=== PATIENT | female | born 1975 | race Caucasian/White ===

== ENCOUNTER 2019-11-09 06:23 | Observation (INO) | payer BC ==
[~2019-11-09 06:23] MED LIST: Buffered Lidocaine 1% SYRIN* 1 ML/SYRINGE INTRADERM ONE; Lactated Ringers 1000 ML Bag* 1,000 ML IV SCH; Vancomycin(*) 1,250 MG in NS 0.9% 250 ML* 250 ML IVPB SCH; Vancomycin(*) 1,500 MG in NS 0.9% 250 ML* 250 ML IVPB SCH
[2019-11-09] MEDS ORDERED: Phenylephrine 10 MG/ML VIAL* 1 ML VIAL ONE (06:25)
[2019-11-09] MEDS ORDERED: fentaNYL* 50 MCG/ML 5 ML VIAL (250 MCG VIAL) ONE ×2 (06:25→12:08)
[2019-11-09] MEDS ORDERED: Propofol* 1,000 MG/100 ML BTL ONE (06:25)
[2019-11-09] MEDS ORDERED: Midazolam* 1 MG/ML 2 ML VIAL (2 MG) ONE (06:25)
--- OUTSIDE RECORDS SUMMARY | 2019-11-09 06:25 | XMS REPORT | Continuity of Care Document ---
:1975 External Reference #:[id number] Author Name Leonel Bonilla M.D. (transmitted by agent of provider Savannah Gomez) Address [address] [place] [id number] Care Team Providers Name Role Phone Leonel Bonilla MD - Rheumatology Care Team Information Engineer Steam Patient's Choice Care Team Information Engineer Steam Unavailable Problems Active Problems Provider Date Neuralgia Darrick Villatoro M.D. Onset: 04/17/2015 Cervical spondylosis without myelopathy Federico De La Rosa M.D. Onset: 06/26/2015 Low back pain Federico De La Rosa M.D. Onset: 06/26/2015 Displacement of lumbar intervertebral disc Federico De La Rosa M.D. Onset: 2014 without myelopathy Brachial neuritis Federico De La Rosa M.D. Onset: 04/20/2016 Social History Type Date Description Comments Sex Unknown ETOH Use Rarely consumes alcohol Tobacco Use Start: Unknown Heavy tobacco smoker (more than 10 cigarettes/day) Recreational Drug Use Denies Drug Use Smoking Status Reviewed: 11/01/19 Heavy tobacco smoker (more than 10 cigarettes/day) Exercise Type/Frequency Exercises sporadically Allergies, Adverse Reactions, Alerts Active Allergies Reaction Severity Comments Date Penicillin 02/13/2015 Amoxicillin 02/13/2015 Erythromycin 02/13/2015 Medications Active Medications SIG Qnty Indications Ordering Date Provider FLAVIO Youssef After surgery M47.22 [facility] 10/18/2019 MD FLAVIO Alvarado Collar At all times [facility] 09/28/2019 after surgery MD Christiano Nabumetone take 1 tablet 30tabs Leonel Bonilla, 03/03/2019 750mg Tablets by mouth twice M.D. a day if needed for pain (avoid use with other nsaids) Mattress Cover temper pedic 1units Leonel Bonilla, 05/20/2018 [facility] use for support M.D. for myalgias Dz Code 729.1 Pramipexole take 1 or 2 30tabs Leonel Bonilla, 07/19/2017 Dihydrochloride tablets by M.D. 0.125mg mouth at Tablets bedtime as needed for restless legs Rolaids Multi-Symptom prn Unknown Chewtabs Gabapentin Take 1 Capsule 360caps M47.22 Leonel Bonilla, 400mg Capsules By Mouth Four M.D. Times A Day History Medications Hydrocodone-Acetaminophen Take one 7tabs M47.22 Leonel 05/24/2019 - 5-325mg tablet/capsule by Chad, Unknown Tablets mouth at bedtime. M.D. as needed for pain Immunizations Description No Information Available Vital Signs Date Vital Result Comment 11/01/2019 11:43am Height 66 inches 5'6" Weight 201.12 lb Heart Rate 85 /min BP Systolic Sitting 116 mmHg BP Diastolic Sitting 76 mmHg Body Temperature 98.2 F Pain Level 6 O2 % BldC Oximetry 98 % BMI (Body Mass Index) 32.5 kg/m2 10/18/2019 2:08pm Height 66 inches 5'6" Weight 207.00 lb Heart Rate 88 /min BP Systolic 110 mmHg BP Diastolic 66 mmHg Pain Level 5 right shoulder Mid Back Right arm and hand BMI (Body Mass Index) 33.4 kg/m2 Results Test Acquired Date Facility Test Result H/L Range Note Basic Metabolic 10/26/2019 [facility] Sodium 138 mmol/L Normal 135-145 Panel [address] [place] [address] [phone] Potassium 4.2 mmol/L Normal 3.5-5.0 Chloride 105 mmol/L Normal 101-111 Co2 Carbon Dioxide 25 mmol/L Normal 22-32 Anion Gap 8 mmol/L Normal 2-11 Glucose 90 mg/dL Normal 70-100 Blood Urea Nitrogen 10 mg/dL Normal 6-24 Creatinine 0.67 mg/dL Normal 0.51-0.95 BUN/Creatinine Ratio 14.9 Normal 8-20 Calcium 8.7 mg/dL Normal 8.6-10.3 Egfr Non- 95.2 >60 Egfr 115.2 >60 1 Laboratory test 10/26/2019 [facility] HCG < 0.60 mIU/ mL 2 finding [address] [place] [address] [phone] Urinalysis Profile 10/26/2019 [facility] Urine Color Yellow [address] [place] [address] [phone] Urine Appearance Cloudy Urine Specific [place] 1.012 Normal 1.010-1.030 Urine pH 6.0 Normal 5-9 Urine Urobilinogen Negative Negative Urine Ketones Trace Abnormal Negative Urine Protein Negative Negative Urine Leukocytes Negative Negative Urine Blood Negative Negative Urine Nitrite Negative Negative Urine Bilirubin Negative Negative Urine Glucose Negative Negative Inr/Protime 10/26/2019 [facility] Inr 0.91 Normal 0.82-1.09 3 [address] [place] [address] [phone] Laboratory test 10/26/2019 [facility] Partial 31.7 Normal 26.0 -38.0 finding 101 [facility] [place] [address] Time PTT [phone] CBC No Diff 10/26/2019 [facility] White Blood 6.5 10^3/uL Normal 3.5-10.8 [address] [facility] [place] [address] [phone] Red Blood Count 4.52 10^6/uL Normal 3.70-4.87 Hemoglobin 14.6 g/dL Normal 12.0-16.0 Hematocrit 42 % Normal 35-47 Mean Corpuscular Volume 93 fL Normal 80-97 Mean Corpuscular Hemoglobin 32 pg High 27-31 Mean Corpuscular HGB Conc 35 g/dL Normal 31-36 Red Cell Distribution Width 15 % Normal 10-15 Platelet Count 294 10^3/uL Normal 150-450 Mean Platelet Volume 7.8 fL Normal 7.4-10.4 Type & Screen 10/26/2019 [facility] Patient Blood Type A Positive [address] [place] [address] [phone] Antibody Screen NEGATIVE Xray 05/24/2019 [facility] TBD <pending> Xray 05/24/2019 [facility] TBD <pending> Xray 05/24/2019 [facility] TBD <pending> 1 Because ethnic data is not always readily available, this report includes an eGFR for both -Americans and non- Americans. The National Kidney Disease Education Program (NKDEP) does not endorse the use of the MDRD equation for patients that are not between the ages of 18 and 70, are , have extremes of body size, muscle mass, or nutritional status, or are non- or non-. According to the National Kidney Foundation, irrespective of diagnosis, the stage of the disease is based on the level of kidney function: Stage Description GFR(mL/min/1.73 m(2)) 1 Kidney damage with normal or decreased GFR 90 2 Kidney damage with mild decrease in GFR 60-89 3 Moderate decrease in GFR 30-59 4 Severe decrease in GFR 15-29 5 Kidney failure <15 (or dialysis) 2 <5.0 Negative 5.0 - 25.0 Indeterminate (Repeat testing recommended after 72 hours) >25.0 Positive Perimenopausal women can display HCG levels of up to 20 mIU/mL 3 Standard intensity warfarin therapeutic range: 2.0-3.0 High intensity warfarin therapeutic range: 2.5-3.5 Procedures Date Code Description Status 10/26/2019 62737 EKG, Interpretation Only Completed Medical Devices Description No Information Available Encounters Type Date Location Provider Dx Diagnosis Office Visit 11/01/2019 Rheumatology Leonel Bonilla, M47.22 Other spondylosis 11:40a [facility] with radiculopathy, cervical region M48.02 Spinal stenosis, cervical region M47.26 Other spondylosis with radiculopathy, lumbar region M51.36 Other intervertebral disc degeneration, lumbar region Office 09/13/2019 [facility] M47.22 Other spondylosis Visit 9:00a [facility] Al[facility] MD with radiculopathy, cervical region M48.02 Spinal stenosis, cervical region M47.26 Other spondylosis with radiculopathy, lumbar region M51.36 Other intervertebral disc degeneration, lumbar region Office 07/26/2019 [facility] M47.22 Other spondylosis Visit 1:00p [facility] Al[facility] MD with radiculopathy, cervical region M54.5 Low back pain M47.26 Other spondylosis with radiculopathy, lumbar region M51.36 Other intervertebral disc degeneration, lumbar region Office Visit 05/24/2019 Rheumatology Leonel M47.22 Other spondylosis 1:40p [facility] Bonilla M.D. with radiculopathy, cervical region M79.605 Pain in left leg D17.24 Benign lipomatous neoplasm of skin, subcu of left leg G25.81 Restless legs syndrome M54.5 Low back pain Assessments Date Code Description Provider 11/01/2019 M47.22 Other spondylosis with radiculopathy, Leonel Bonilla M.D. cervical region 11/01/2019 M48.02 Spinal stenosis, cervical region Leonel Bonilla M.D. 11/01/2019 M47.26 Other spondylosis with radiculopathy, Leonel Bonilla M.D. lumbar region 11/01/2019 M51.36 Other intervertebral disc degeneration, Leonel Bonilla M.D. lumbar region 10/18/2019 M47.22 Other spondylosis with radiculopathy, Marciano Alvarado MD cervical region 10/18/2019 M48.02 Spinal stenosis, cervical region Marciano Alvarado MD 10/18/2019 M47.26 Other spondylosis with radiculopathy, Marciano Alvarado MD lumbar region 09/25/2019 M47.22 Other spondylosis with radiculopathy, Marciano Alvarado MD cervical region 09/25/2019 M48.02 Spinal stenosis, cervical region Marciano Alvarado MD 09/13/2019 M47.22 Other spondylosis with radiculopathy, Marciano Alvarado MD cervical region 09/13/2019 M48.02 Spinal stenosis, cervical region Marciano Alvarado MD 09/13/2019 M47.26 Other spondylosis with radiculopathy, Marciano Alvarado MD lumbar region 09/13/2019 M51.36 Other intervertebral disc degeneration, Marciano Alvarado MD lumbar region 07/26/2019 M47.22 Other spondylosis with radiculopathy, Marciano Alvarado MD cervical region 07/26/2019 M54.5 Low back pain Marciano Alvarado MD 07/26/2019 M47.26 Other spondylosis with radiculopathy, Marciano Alvarado MD lumbar region 07/26/2019 M51.36 Other intervertebral disc degeneration, Marciano Alvarado MD lumbar region 05/24/2019 M47.22 Other spondylosis with radiculopathy, Leonel Bonilla M.D. cervical region 05/24/2019 M79.605 Pain in left leg Leonel Bonilla M.D. 05/24/2019 D17.24 Benign lipomatous neoplasm of skin and Leonel Bonilla M.D. subcutaneous tissue of left leg 05/24/2019 G25.81 Restless legs syndrome Leonel Bonilla M.D. 05/24/2019 M54.5 Low back pain Leonel Bonilla M.D. Plan of Treatment Future Appointment(s):01/31/2020 9:20 am - Leonel Bonilla M.D. at [facility]11/09/2019 10:30 am - Marciano Alvarado MD at [facility]11/17/2019 11:30 am - Marciano Alvarado MD at [facility]12/11/2019 12:30 pm - Marciano Alvarado MD at [facility]11/01/2019 - Leonel Bonilla M.D.M47.22 Other spondylosis with radiculopathy, cervical iiwkbcX08.02 Spinal stenosis, cervical yqosoyJ77.26 Other spondylosis with radiculopathy, lumbar sitjoyG24.36 Other intervertebral disc degeneration, lumbar region Functional Status Description No Information Available Mental Status Description No Information Available Referrals Refer to Dr Reason for Referral Status Appt Date Aj Prado MD Created [address] [place] [address] [phone] Aj Prado MD pre op clearance Created [address] [place] [address] [phone] Marciano Alvarado MD Please evaluate and treat patient with Sent lumbar radiculopathy symptoms 8 [facility], [place] [address] [phone] Marciano Alvarado MD Please evaluate and treat lumbar Created radiculopathy [address] [place] [id number] [phone]
--- OUTSIDE RECORDS SUMMARY | 2019-11-09 06:25 | XMS REPORT | Continuity of Care Document ---
:1975 External Reference #:[id number] Author Name Marciano Alvarado MD (transmitted by agent of provider Sanjana Reyes ) Address [address] [place] [address] Care Team Providers Name Role Phone Leonel Bonilla MD - Rheumatology Care Team Information Occupational Ther Patient's Choice Care Team Information Occupational Ther Unavailable Problems Active Problems Provider Date Neuralgia [...] Use Denies Drug Use Smoking Status Reviewed: 09/13/19 Heavy tobacco smoker (more than 10 cigarettes/day) Exercise Type/Frequency Exercises sporadically Allergies, Adverse Reactions, Alerts Active Allergies Reaction Severity Comments Date Penicillin 02/13/2015 Amoxicillin 02/13/2015 Erythromycin 02/13/2015 Medications Active Medications SIG Qnty Indications Ordering Date Provider Nabumetone take 1 tablet by 30tabs Leonel Bonilla, 03/03/2019 750mg Tablets mouth twice a M.D. day if needed for pain (Avoid Use With Other NSAIDS) Venlafaxine HCL ER take 1 capsule 60caps M47.22 Leonel Bonilla, 05/20/2018 150mg by mouth once M.D. Caps ER 24HR daily Mattress Cover temper pedic use 1units Leonel Bonilla, 05/20/2018 [facility] [place] for M.D. myalgias Dz Code 729.1 Pramipexole take 1 or 2 30tabs Leonel Bonilla, 07/19/2017 Dihydrochloride tablets by mouth M.D. 0.125mg at bedtime as Tablets Needed For Restless Legs Rolaids Multi-Symptom prn Unknown Chewtabs Gabapentin Take 1 Capsule 360caps M47.22 Leonel Bonilla, 400mg Capsules By Mouth Four M.D. Times A Day Cyclobenzaprine HCL take one by 60tabs M47.22 Leonel Bonilla, 10mg mouth three M.D. Tablets times a day as needed For spasm History Medications Hydrocodone-Acetaminophen Take one 7tabs M47.22 Leonel 05/24/2019 - 5-325mg tablet/capsule by Chad, Unknown Tablets mouth at bedtime. M.D. as needed for pain Magnesium take one 60tabs Leonel 03/29/2019 - 500mg Tablets capsule/tablet Chad, 09/06/2019 daily by mouth M.D. Immunizations Description No Information Available Vital Signs Date Vital Result Comment 09/13/2019 9:15am Height 66 inches 5'6" Weight 207.00 lb Heart Rate 84 /min BP Systolic Sitting 122 mmHg Lue reg cuff BP Diastolic Sitting 86 mmHg Lue reg cuff Respiratory Rate 14 /min BMI (Body Mass Index) 33.4 kg/m2 07/26/2019 1:57pm Height 66 inches 5'6" Weight 210.00 lb BP Systolic 118 mmHg BP Diastolic 72 mmHg Pain Level 6 BMI (Body Mass Index) 33.9 kg/m2 Results Test Acquired Date Facility Test Result H/L Range Note Xray 05/24/2019 [facility] TBD <pending> Xray 05/24/2019 [facility] TBD <pending> Xray 05/24/2019 [facility] TBD <pending> Procedures Description No Information Available Medical Devices Description No Information Available Encounters Type Date Location Provider Dx Diagnosis Office Visit 07/26/2019 [facility] M47.22 Other spondylosis 1:00p [facility] Dim[facility], MD with radiculopathy, cervical region M54.5 Low [...] Restless legs syndrome M54.5 Low back pain Office Visit 04/21/2019 [facility] Maciej Ovalle, M79.605 Pain in left Of [facility] DE SANTIAGO, FACS leg Assessments Date Code Description Provider 09/13/2019 M47.22 Other spondylosis with radiculopathy, Marciano Alvarado MD cervical region 09/13/2019 M47.26 Other spondylosis with radiculopathy, Marciano Alvarado MD lumbar region 09/13/2019 M51.36 Other intervertebral disc degeneration, Marciano Alvarado MD lumbar region 09/13/2019 M47.12 Other spondylosis with myelopathy, Marciano Alvarado MD cervical region 07/26/2019 M47.22 Other spondylosis with radiculopathy, Marciano Alvarado MD cervical region 07/26/2019 M54.5 Low back pain Marciano Alvarado MD 07/26/2019 M47.26 Other spondylosis with radiculopathy, Marciano Alvarado MD lumbar region 07/26/2019 M51.36 Other intervertebral disc degeneration, Marciano Alvarado MD lumbar region 05/24/2019 M47.22 Other spondylosis with radiculopathy, Leonel Boinlla M.D. cervical region 05/24/2019 M79.605 Pain in left leg Leonel Bonilla M.D. 05/24/2019 D17.24 Benign lipomatous neoplasm of skin and Leonel Bonilla M.D. subcutaneous tissue of left leg 05/24/2019 G25.81 Restless legs syndrome Leonel Bonilla M.D. 05/24/2019 M54.5 Low back pain Leonel Bonilla M.D. 04/21/2019 M79.605 Pain in left leg Maciej Ovalle MD, FACS Plan of Treatment Future Appointment(s):12/20/2019 9:30 am - Marciano Alvarado MD at [facility]09/13/2019 - Marciano Alvarado, MDM47.22 Other spondylosis with radiculopathy, cervical regionFollow up:RV in 3 months . Patient will call if she would like to proceed with surgical intervention.M47.26 Other spondylosis with radiculopathy, lumbar ixdpjiD94.36 Other intervertebral disc degeneration, lumbar xzstqiY30.12 Other spondylosis with myelopathy, cervical region Functional Status Description No Information Available Mental Status Description No Information Available Referrals Refer to Reason for Referral Status Appt Date Marciano Alvarado MD Please evaluate and treat patient with Sent lumbar radiculopathy symptoms 8 [facility], [place] [address] [phone] Marciano Alvarado MD Please evaluate and treat lumbar Created radiculopathy 8 [facility], [place] [address] [phone] Maciej Ovalle MD Please evaluate and treat patient with painful Sent lipomas to consider lipoma excision [address] [facility] [address] [facility] [address] [phone]
--- OUTSIDE RECORDS SUMMARY | 2019-11-09 06:25 | XMS REPORT | Continuity of Care Document ---
:1975 External Reference #:[id number] Author Name Nick Hernandez M.D. (transmitted by agent of provider Reina Rai) Address [address] [facility] [address] [place] [address] Care Team Providers Name Role Phone Leonel Bonilla MD - Rheumatology Care Team Information Block Greaser [phone] Patient's Choice Care Team Information Block Greaser Unavailable Problems Active Problems Provider Date Neuralgia [...] Use Denies Drug Use Smoking Status Reviewed: 10/18/19 Heavy tobacco smoker (more than 10 cigarettes/day) Exercise Type/Frequency Exercises sporadically Allergies, Adverse Reactions, Alerts Active Allergies Reaction Severity Comments Date Penicillin 02/13/2015 Amoxicillin 02/13/2015 Erythromycin 02/13/2015 Medications Active Medications SIG Qnty Indications Ordering Date Provider FLAVIO Youssef After surgery M47.22 [facility] 10/18/2019 MD FLAVIO Alvarado Collar At all times [facility] 09/28/2019 after surgery MD Christiano Nabumetone take 1 tablet 30tabs Leonel Bonilla 03/03/2019 750mg Tablets by mouth twice M.D. a day if needed for pain (Avoid Use With Other NSAIDS) Venlafaxine HCL ER take 1 capsule 60caps M47.22 Leonel Bonilla, 05/20/2018 150mg by mouth once M.D. Caps ER 24HR daily Mattress Cover temper pedic 1units Leonel Bonilla, 05/20/2018 Misc use for support M.D. for myalgias Dz Code 729.1 Pramipexole take 1 or 2 30tabs Leonel Bonilla, 07/19/2017 Dihydrochloride tablets by M.D. 0.125mg mouth at Tablets bedtime as Needed For Restless Legs Rolaids Multi-Symptom prn [...] Available Vital Signs Date Vital Result Comment 10/18/2019 2:08pm Height 66 inches 5'6" Weight 207.00 lb Heart Rate 88 /min BP Systolic 110 mmHg BP Diastolic 66 mmHg Pain Level 5 right shoulder Mid Back Right arm and hand BMI (Body Mass Index) 33.4 kg/m2 09/13/2019 9:15am Height 66 inches 5'6" Weight 207.00 lb Heart Rate 84 /min BP Systolic Sitting 122 mmHg Lue reg cuff BP Diastolic Sitting 86 mmHg Lue reg cuff Respiratory Rate 14 /min BMI (Body Mass Index) 33.4 kg/m2 Results Test Acquired Date Facility Test Result H/L Range Note Basic Metabolic 10/26/2019 [facility] Sodium 138 mmol/L Normal 135-[address] [place] [address] [phone] Potassium 4.2 mmol/L Normal 3.5-5.0 Chloride 105 mmol/L Normal 101-111 Co2 Carbon Dioxide 25 mmol/L Normal 22-32 Anion Gap 8 mmol/L Normal 2-11 Glucose 90 mg/dL Normal 70-100 Blood Urea Nitrogen 10 mg/dL Normal 6-24 Creatinine 0.67 mg/dL Normal 0.51-0.95 BUN/Creatinine Ratio 14.9 Normal 8-20 Calcium 8.7 mg/dL Normal 8.6-10.3 Egfr Non- 95.2 >60 Egfr 115.2 >60 1 Laboratory test 10/26/2019 [facility] HCG < 0.60 mIU/ mL 2 finding 101 [place] [address] [phone] Urinalysis Profile 10/26/2019 [facility] Urine Color Yellow [address] [place] [address] [phone] Urine Appearance Cloudy Urine Specific [place] 1.012 Normal 1.010-1.030 Urine pH 6.0 Normal 5-9 Urine Urobilinogen Negative Negative Urine Ketones Trace Abnormal Negative Urine Protein Negative Negative Urine Leukocytes Negative Negative Urine Blood Negative Negative Urine Nitrite Negative Negative Urine Bilirubin Negative Negative Urine Glucose Negative Negative Inr/Protime 10/26/2019 [facility] Inr 0.91 Normal 0.82-1.09 3 [address] [place] [address] [phone] Laboratory test 10/26/2019 [facility] Partial 31.7 Normal 26.0 -38.0 finding [address] [facility] [place] [address] Time PTT [phone] CBC No Diff 10/26/2019 [facility] White Blood 6.5 10^3/uL Normal 3.5-10.8 [address] [facility] [place] [address] [phone] Red Blood Count 4.52 10^6/uL Normal 3.70-4.87 [...] fL Normal 7.4-10.4 Type & Screen 10/26/2019 [facility] Patient Blood Type A Positive [address] [place] [address] [phone] Antibody Screen NEGATIVE Xray 05/24/2019 [facility] TBD <pending> Xray 05/24/2019 [facility] TBD <pending> Xray 05/24/2019 [facility] TBD [...] High intensity warfarin therapeutic range: 2.5-3.5 Procedures Description No Information Available Medical Devices Description No Information Available Encounters Type Date Location Provider Dx Diagnosis Office Visit 09/13/2019 [facility] M47.22 Other spondylosis 9:00a [facility] MD with [...] back pain Assessments Date Code Description Provider 10/18/2019 M47.22 Other spondylosis with radiculopathy, Marciano [...] Leonel Bonilla M.D. Plan of Treatment Future Appointment(s):11/01/2019 11:40 am - Leonel Bonilla M.D. at [facility]11/09/2019 10:30 am - Marciano Alvarado MD at [facility]11/17/2019 11:30 am - Marciano Alvarado MD at [facility]12/11/2019 12:30 pm - Marciano Alvarado MD at [facility]10/18/2019 - Marciano Alvarado, MDM47.22 Other spondylosis with radiculopathy, cervical regionNew Medication:MJ Collar - After surgeryReferral:Aj Prado MD, Physical Medicine/RehabFollow up: one week, one month, three months postop.M48.02 Spinal stenosis, cervical iauheuB89.26 Other spondylosis with radiculopathy, lumbar region Functional Status Description No Information Available Mental Status Description No Information Available Referrals Refer to Dr Reason for Referral Status Appt Date Aj Prado MD Created [address] [facility] [address] [place] [address] [phone] Aj Prado MD pre op clearance Created [address] [place] [address] [phone] Marciano Alvarado MD Please evaluate and treat patient with Sent lumbar radiculopathy symptoms 8 [facility] [place] [address] [phone] Marciano Alvarado MD Please evaluate and treat lumbar Created radiculopathy 8 [place] [address] [phone]
--- OUTSIDE RECORDS SUMMARY | 2019-11-09 06:25 | XMS REPORT | Continuity of Care Document ---
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 Unavailable Problems Active Problems Provider Date Neuralgia [...] Qnty Indications Ordering Date Provider FLAVIO Youssef At all times Marciano 09/28/2019 after surgery MD Christiano Nabumetone take [...] Test Result H/L Range Note Xray 05/24/2019 Cardiology Teacher In House US Diagnostic In House TBD <pending> Xray 05/24/2019 Cardiology Teacher In House US Diagnostic In House TBD <pending> Xray 05/24/2019 Cardiology Teacher In House US Diagnostic In House TBD [...] FACS leg Assessments Date Code Description Provider 10/18/2019 M47.22 [...] Ovalle MD, FACS Plan of Treatment Future Appointment(s):11/01/2019 11:40 am - Leonel Bonilla M.D. at [facility]11/09/2019 10:30 am - Marciano Alvarado MD at [facility]11/17/2019 11:30 am - Marciano Alvarado MD at [facility]12/11/2019 12:30 pm - Marciano Alvarado MD at [facility]10/18/2019 - Marciano Alvarado MDM47.22 Other spondylosis with radiculopathy, cervical [id number] Spinal stenosis, cervical [id number] Other spondylosis with radiculopathy, lumbar region Functional Status Description No Information Available Mental Status Description No Information Available Referrals Refer to Reason for Referral Status Appt Aj Prado MD pre op clearance Created [address] [place] [id number] [phone] Marciano Alvarado MD Please evaluate and treat patient with Sent lumbar radiculopathy symptoms [address] [facility], [place] [id number] [phone] Marciano Alvarado MD Please evaluate and treat lumbar Created radiculopathy 8 [facility], [place] [address] [phone]
[2019-11-09] MEDS ORDERED: Rocuronium* 10 MG/ML VIAL ONE ×3 (06:31→13:33)
[2019-11-09] MEDS ORDERED: Ondansetron INJ* 2 MG/ML VIAL ONE (06:31)
[2019-11-09] MEDS ORDERED: Glycopyrrolate IV* 0.2 MG/ML 1 ML VIAL ONE (06:31)
[2019-11-09] MEDS ORDERED: Dexamethasone IV* 4 MG/ML 1 ML (4 MG) ONE ×2 (06:31)
[2019-11-09] MEDS ORDERED: Lidocaine 2% PF * 5 ML VIAL ONE (06:36)
[2019-11-09] MEDS ORDERED: Sodium Chloride 0.9%* 10 ML ONE (06:43)
[2019-11-09] MEDS ORDERED: Lidocaine 1% w EPI 1:200,000* SDV 30 ML VIAL ONE (07:50)
[2019-11-09] MEDS ORDERED: Bacitracin INJECTION* 50,000 UNITS ONE (07:51)
[2019-11-09] MEDS ORDERED: Acetaminophen IV 1GM/100ML * 100 ML ONE (11:24)
[2019-11-09] MEDS ORDERED: Naloxone* 0.4 MG/ML 1 ML VIAL IV PRN (11:30)
[2019-11-09] MEDS ORDERED: fentaNYL* 50 MCG/ML 2 ML VIAL (100 MCG VIAL) ONE ×3 (11:58→14:19)
[2019-11-09] MEDS ORDERED: Sugammadex * 200 MG/2 ML VIAL IV PUSH ONE (13:13)
[2019-11-09] MEDS ORDERED: Sevoflurane* BOTTLE ONE (13:24)
[2019-11-09] MEDS: fentaNYL* 50 MCG/ML 2 ML VIAL (100 MCG VIAL) IV PRN ×4 (14:20→14:37)
[2019-11-09] MEDS ORDERED: oxyCODONE TAB* 5 MG TAB PO PRN (14:24)
[2019-11-09] MEDS ORDERED: Acetaminophen TAB* 325 MG PO PRN (14:24)
[2019-11-09] MEDS ORDERED: Ondansetron INJ* 2 MG/ML VIAL IV PRN (14:24)
[2019-11-09] MEDS ORDERED: Magnesium Hydroxide LIQ* 30 ML UDC PO PRN (14:24)
[2019-11-09] MEDS ORDERED: Lactated Ringers 1000 ML Bag* 1,000 ML IV SCH (15:00)
[2019-11-09] MEDS: oxyCODONE TAB* 5 MG TAB PO PRN ×2 (17:12→21:08)
--- NOTE | 2019-11-09 17:40 | CONSULT ---
Consult Consult: November 09, 2019 INPATIENT PAIN CONSULTATION Megan Gillette is a 43 year old female. 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 She developed neck pain about 8 years ago. She had an MRI of her cervical spine in [address] De La Rosa. He didn't feel that surgery was the answer. She didn't see Dr. De La Rosa after that. She saw Dr. Bonilla for arthritis. He did a rheumatologic workup but no rheumatologic diseases were found. She had trouble with frequently dropping things. She had a new MRI of her cervical and lumbar spine in 2018. She was having pain in her neck radiating down her arms. She had a previous lumbar spine surgery done by Dr. Dixon at [facility] 20+ years ago. She was referred to Dr. Alvarado. She had a new workup and a new MRI of her cervical spine. She had significant DJD with right sided disc osteophyte complex at C5/6 and C6/7. There was neural foraminal narrowing at those levels. She was admitted to [facility] today and had an ACDF at C5/6 and C6/7 with PEEK interbody cage, DBX plate and screws. I am asked to see her to assist in pain management. PAST MEDICAL HISTORY: Restless legs syndrome, appendectomy Allergies Allergy/AdvReac Type Severity Reaction Status Date / Time amoxicillin Allergy Nausea And Verified 11/09/19 06:46 Vomiting erythromycin base Allergy Facial Verified 11/09/19 06:46 Redness/Flushing CAT AND DOG Allergy Intermediate RUNNY NOSE Uncoded 11/09/19 06:46 AND CONGESTION SEASONAL Allergy Intermediate RUNNY Uncoded 11/09/19 06:46 NOSE, CONGESTION penicillin Allergy Nausea And Uncoded 11/09/19 06:46 Vomiting Current Medications Acetaminophen (Tylenol Tab*) 650 mg PO Q4H PRN PRN Reason: MILD PAIN or TEMP > 100.4 Docusate Sodium (Colace Cap*) 100 mg PO BID ESTEVAN Vancomycin HCl 1,500 mg/ (Sodium Chloride) 250 mls @ 166.667 mls/hr IVPB PREOP Stop: 11/09/19 23:59 Lactated Ringer's (Lactated Ringers 1000 Ml Bag*) 1,000 mls @ 50 mls/hr IV .per rate ESTEVAN Magnesium Hydroxide (Milk Of Magnesia Liq*) 30 ml PO DAILY PRN PRN Reason: CONSTIPATION Ondansetron HCl (Zofran Inj*) 4 mg IV Q6H PRN PRN Reason: NAUSEA/VOMITING Oxycodone HCl (Roxycodone Tab*) 5 mg PO Q4H PRN PRN Reason: PAIN - MODERATE Oxycodone HCl (Roxycodone Tab*) 10 mg PO Q4H PRN PRN Reason: PAIN - SEVERE Last Admin: 11/09/19 17:12 Dose: 10 mg SOCIAL HISTORY: 1 ppd smoker, drinks several times a week, no illicit drugs. Lives in a 2 story house, can stay on one level ROS: No CP or SOB, last BM was Wednesday Vital Signs Temp Pulse Resp BP Pulse Ox 97.8 F 88 16 110/77 96 11/09/19 16:37 11/09/19 16:37 11/09/19 17:12 11/09/19 16:37 11/09/19 17:02 EXAM: GENERAL: No apparent distress NECK: Immobilized in collar LUNGS: CLear HEART: reg rhythm ABDOMEN: SOft EXTREMITIES: Normal tone NEUROLOGIC: Able to move all 4 extremities ASSESSMENT: 1. ACDF C5/6 and C6/7 PLAN: The ordered oxycodone should be adequate. I will re-order her gabapentin and tizanidine and order bowel medications. I will follow.
[2019-11-09] MEDS ORDERED: tiZANidine TAB* 2 MG PO PRN (17:45)
[2019-11-09] MEDS ORDERED: Magnesium Hydroxide LIQ* 30 ML UDC PO ONE (17:46)
--- NOTE | 2019-11-09 18:03 | CONS ---
CONSULTATION REPORT: DATE OF CONSULT: 11/09/19 REQUESTED BY: Dr. Alvarado. ATTENDING PHYSICIAN: Dr. Mercedes REASON FOR CONSULTATION: Co-management of medical comorbidities. HISTORY OF PRESENT ILLNESS: Ms. Gillette is a 43-year-old female who today had an elective ACDF procedure with Dr. Alvarado. She states that prior to the procedure, she was having significant numbness and tingling throughout her right arm as well as pain throughout the arm and her neck. She states she still has some pain, feels like an ache, but denies any current numbness or tingling. She denies any recent fevers, chills, visual changes, chest pain, palpitations, shortness of breath, cough, nausea, vomiting, diarrhea, abdominal pain, difficulty urinating, blood in urine, unusual muscle or joint aches, rashes, lesions or wounds, headaches, anxiety. She states that she is often constipated and takes over-the- counter stool softener for this. She also states that she has baseline numbness throughout her left lower extremity and this has been addressed with her neurosurgeon. Ms. Gillette has no other concerns at this time. PAST MEDICAL HISTORY: Chronic pain, fibromyalgia. PAST SURGICAL HISTORY: 1. Lumbar surgeries x2. 2. Essure placement bilaterally. 3. Kidney stone removal. 4. Appendectomy. HOME MEDICATIONS: 1. Tizanidine 4 mg p.o. b.i.d. p.r.n. 2. Nabumetone 1 mg p.o. b.i.d. p.r.n. 3. Gabapentin 400 mg p.o. t.i.d. 4. Tums p.o. p.r.n. 5. Acetaminophen ER 650 mg q.12 hours p.r.n. 6. Pramipexole unsure of dose as needed at nighttime for restless legs. ALLERGIES: PENICILLINS and ERYTHROMYCIN. FAMILY HISTORY: Mother with hypertension. Father with heart arrhythmia. Son with congenital heart defect. Two paternal aunts with ovarian cancer. Maternal grandmother with lung cancer. SOCIAL HISTORY: The patient states that she is currently . Lives with her boyfriend. Has 3 children. States that she used to smoke about 2 packs per day, has decreased to about half a pack per day and has been smoking for approximately 30 years. States that she drinks a couple drinks up to 2 times a week. Denies any illicit drug use. REVIEW OF SYSTEMS: A 10-point review of systems was completed with the patient. Please see HPI for all pertinent positives and negatives. PHYSICAL EXAM: Constitutional: The patient sitting up in bed, states she is most comfortable this way, in no acute distress. Last vital signs: Temp 97.5, heart rate 87, respiratory rate 18, O2 sat 95% on 4 L, blood pressure 129/91. HEENT: PERRLA. No scleral icterus noted. Cardiovascular: Heart rate regular. S1, S2 present. No murmurs, rubs, or gallops noted. Respiratory: Lung sounds loud and rhonchus throughout bilaterally. Diminished to bilateral lower bases. Normal rate and rhythm. GI: Bowel sounds throughout. Abdomen is soft, nontender. Musculoskeletal: Range of motion and strength appears normal to bilateral upper extremities. Able to wiggle toes. The patient is wearing [place] J collar. Skin: Incision to anterior neck covered with dressing. Small amount of dark sanguinous appearing drainage visible through mid layers. SUSANNAH drain with small amount sanguinous drainage. Neuro: Alert and oriented x3. Cranial nerves II through XII grossly intact. Normal sensation to right upper extremity. Psych: Responds appropriately. Flat affect. DIAGNOSTIC STUDIES/LAB DATA: Preop chest x-ray, impression states no active cardiopulmonary disease. Preop EKG shows normal sinus rhythm with a rate of 77. Preop labs: WBC 6.5, RBC 4.52, hemoglobin 14.6, hematocrit 42, MCV 93, MCH 32, MCHC 35, RDW 15, platelet count 294. INR 0.91, aPTT 31.7. Sodium 138, potassium 4.2, chloride 105, carbon dioxide 25, anion gap 8, BUN 10, creatinine 0.67, estimated GFR 95.2, glucose 90, calcium 8.7. Beta hCG negative. Preop urinalysis shows trace ketones, otherwise unremarkable. ASSESSMENT AND PLAN: Ms. Gillette is a 43-year-old female with past medical history significant for chronic pain, fibromyalgia, previous lumbar surgeries. Today, she had an elective ACDF procedure with Dr. Alvarado. Hospital Medicine was asked to consult for co-management of medical comorbidities. 1. Status post ACDF - elective procedure performed today with Dr. Alvarado. Any neurological findings or deficits should be reported to Dr. Alvarado. We will continue to monitor. 2. Supplemental Oxygen requirement. The patient last noted to be 95% on 4 L via nasal cannula. Her lungs are fairly rhonchus with poor sounding air movement. She denies any shortness of breath and does not appear to be in any sort of acute distress at this time. She has a significant smoking hx but no known lung disease. Likely a mixture of time in the OR, fluids, intubation, and baseline respiratory status in relation to smoking. Chest x-ray ordered. Incentive spirometry education ordered. 3. Constipation. The patient states she is often constipated and takes an over - the-counter stool softener. Encourage fluids. Colace b.i.d. ordered. Milk of mag p.r.n. ordered. 4. Chronic pain. The patient sees Dr. Prado in relation to her pain per her report. He has been consulted by Dr. Alvarado. We will continue to follow. 5. FEN: Can continue with regular diet as tolerated. Fluid maintenance until taking p.o. and hemodynamically stable. 6. Code status: Full code. 7. DVT prophylaxis: TEDs ordered by Dr. Alvarado. DISPOSITION: The patient will be admitted to short-stay surgical unit. CONDITION: Stable. Thank you for allowing us to participate in the care of this patient. We will follow during this admission. This plan has been discussed with my attending physician, Dr. Mercedes, and she agrees with the plan. LIVAN ARANA NP [id number]/CPS #: [id number] ADDENDUM: Per nursing pt refused chest XRay. Pt seen again to re-evaluate respiratory status at approximately 1999, only mild rhonchi noted to R lung and TIGER, LLL clear, improved airflow quality noted. 95% O2 SAT on RA. Continued to deny SOB. MTDD
[2019-11-09] MEDS ORDERED: Albuterol 2.5 MG/3 ML NEB.SOL* (0.083%) INH PRN (19:30)
[2019-11-09] MEDS: Gabapentin CAP(*) 400 MG PO SCH (20:15)
[2019-11-09] MEDS: Docusate CAP* 100 MG PO SCH (20:16)
[2019-11-09] MEDS ORDERED: Senna TAB 8.6 mg* TAB PO SCH (21:00)
[2019-11-09] MEDS ORDERED: Calcium Carbonate CHEW TAB* 500 MG (TUMS) PO PRN (22:17)
--- NOTE | 2019-11-09 23:11 | OP ---
DATE OF OPERATION: 11/09/19 - ROOM #334 DATE OF : 71 SURGEON: Marciano Alvarado MD CARD MAKER: AARON Wiggins ANESTHESIA: General. PRE-OP DIAGNOSES: 1. Degenerative disk disease. 2. Myelopathy. POST-OP DIAGNOSES: 1. Degenerative disk disease. 2. Myelopathy. OPERATIVE PROCEDURE: The patient underwent anterior cervical diskectomy and fusion at C5-6 and C6-7 with PEEK interbody cages, local bone graft, DBX, plate and screws. ESTIMATED BLOOD LOSS: 15 cc. COMPLICATIONS: None. SUMMARY: The patient is a very pleasant 43-year-old female with complaints of neck pain radiating to the right more than left upper extremity with signs of myelopathy, with MRI findings consistent with degenerative disk disease and disk herniation at C5-6 and C6-7. After explaining the expectations, limitations, and possible complications of the procedure to the patient and her significant other with complications including, but not limited to bleeding, infection, risk of injury to adjacent structures, coma, paralysis, , need for additional procedures, anesthesia risks, stroke, blindness, cancer, instability, hardware failure, adjacent level disease, pseudoarthrosis, proximal and distal junctional kyphosis, spinal fluid leak, recurrent laryngeal nerve injury, injury to the esophagus or trachea, need for tracheostomy or gastrostomy, postoperative hematoma formation; the patient was agreeable to proceed with surgery and informed consent was obtained. The patient understood that her condition may not improve and in fact may get worse after surgery and that she may need to have additional procedures in the future. She also understood that operative plan may be modified according to intraoperative findings and conditions and that the case may be abandoned or done in more than 1 stages. She understood that she may require prolonged hospitalization, prolonged ICU stay, prolonged rehabilitation, and additional procedures in the future. DESCRIPTION OF PROCEDURE: The patient was brought to the operating room and was placed under general anesthesia by the anesthesia team. She was carefully positioned supine on the Charanjit table and all bony prominences were meticulously padded. Her skin was prepped and draped in the standard fashion. After appropriate surgical pause and patient identification, a small right transverse incision was marked on the skin at the level of C5-C6 approximately. The skin was infiltrated with local anesthetic. A #10 surgical blade was used to incise the skin. The incision was carried down through the subcutaneous tissue and the skin was gently undermined with tenotomy scissors. The platysma was then gently elevated and undermined with tenotomy scissors. The plane between the medial border of the sternocleidomastoid and the medial structures was then gently developed with a series of sharp and blunt dissections. The prevertebral fascia was identified and gently divided. After exposing the anterior spinal column, a spinal needle was used to localize the appropriate level. After intraoperative confirmation of the appropriate surgical level and second surgical pause, self-retaining retractors were introduced into the field. Then, the longus colli was gently elevated and [place] pins were placed in the vertebral bodies of C5, C6, and C7. Anterior osteophyte was found in the C5-6 level as expected from preoperative imaging. The anterior osteophyte was gently removed with [place] rongeurs and [place] pin retractor was introduced into the field. A diskectomy was performed as well as preparation of the disk space under microscopic magnification after incising the annulus fibrosus with #15 blade. The diskectomy and disk space preparation was carried out with pituitary rongeurs, Kerrison punches, and curettes with high-speed drill. Local bone harvested during the disc preparation process was saved to be used in the arthrodesis part of the case. Then, the posterior longitudinal ligament was gently divided and foraminotomies were performed bilaterally. The right-sided disk herniation was identified as expected from preoperative imaging. A #8 PEEK interbody cage from [employer] was then inserted after appropriate sizing of the disk space. The PEEK graft was filled with a mixture of DBX and locally harvested bone graft during the diskectomy part of the procedure. Then, the [place] pin was removed from the C5 vertebral body and hemostasis was secured while the Shadow-Line retractor was gently repositioned over the C6-7 disk space and the [place] pin retractor was again repositioned. Every time that the Shadow-Line retractor was deployed, the Apfelbaum maneuver was performed. The procedure was repeated for the C6-7 disk space and the posterior longitudinal ligament was divided. A #9 PEEK interbody cage filled with the same mixture of bone graft was also inserted. Then, the [place] pins were gently removed and a [employer] [facility] anterior cervical plate was placed after being contoured and measured. Six 15 mm screws were then inserted to the secure the plate in place and intraoperative fluoroscopic imaging confirmed excellent placement of all hardware. The screws were final tightened and the locking mechanism was then engaged. After removing the Shadow -Line retractor and after copious irrigation, confirmation of meticulous hemostasis and meticulous inspection, the wound was closed by layers over a Andrei drain which was tunneled through a separate stab wound incision. Of note , prior to insertion of the interbody cages, the thecal sac was found to be free of any pressure phenomenon. The platysma was approximated with interrupted 2- 0 Vicryl suture while the subcutaneous tissue was approximated with inverted interrupted 2-0 Vicryl sutures. The skin was then covered with Dermabond. At the end of the procedure, all counts were reported to be correct. The patient remained hemodynamically stable throughout the case. At the end of the procedure, she was extubated and was transferred to Recovery in excellent condition. [id number]/CPS #: [id number] ERICA
[2019-11-10] MEDS: oxyCODONE TAB* 5 MG TAB PO PRN ×3 (01:15→09:24)
[2019-11-10] MEDS ORDERED: Nicotine Lozenge* mini 4 MG LOZNG.MINI MT PRN (05:06)
[2019-11-10] MEDS: Gabapentin CAP(*) 400 MG PO SCH (09:24)
[2019-11-10] MEDS: Docusate CAP* 100 MG PO SCH (09:24)
[2019-11-10 11:25] VITALS: BP 102/64
--- NOTE | 2019-11-10 15:36 | DS ---
CC: Dr. Leonel Bonilla; Dr. Marciano Alvarado * DISCHARGE SUMMARY: DATE OF ADMISSION: 11/09/19 DATE OF DISCHARGE: 11/10/19 PRIMARY CARE PROVIDER: Leonel Bonilla MD. NEUROSURGEON: Marciano Alvarado MD. ATTENDING PHYSICIAN: Allison Mercedes MD * (dictated by ALICIA Spaulding). PRIMARY DIAGNOSIS: Anterior cervical diskectomy and fusion of C5-C6, C6-C7. SECONDARY DIAGNOSES: 1. Chronic pain. 2. Fibromyalgia. STUDIES WHILE IN THE HOSPITAL: Cervical spine x-ray, impression: status post anterior cervical fusion. PROCEDURES WHILE IN THE HOSPITAL: Anterior cervical diskectomy and fusion at C5 -C6 and C6-C7 with PEEK interbody cages, local bone graft, DBX, plate and screws for degenerative disk disease, myelopathy. HISTORY OF PRESENT ILLNESS/HOSPITAL COURSE: Ms. Gillette is a 43-year-old female with a past medical history of chronic pain and fibromyalgia as well as degenerative disk disease and myelopathy, who presented to [facility] on 11/09/19 for a cervical diskectomy and fusion C5-C6, C6-C7. After the procedure, the patient remained overnight for pain control and monitoring. The patient is seen on postop day 1 and complains of 5/10 neck pain, but notes that the paresthesias in her hands that she has had for years have resolved. She reports that she has a sore throat, but she has no difficulty with eating, speaking, swallowing, or breathing. She denies dizziness, lightheadedness, chest pain, shortness of breath, cough, fever, chills, abdominal pain, nausea, vomiting, diarrhea, constipation. At this time, Ms. Gillette is stable and eager for discharge home. PHYSICAL EXAMINATION: Vital Signs: Temperature 98.5 oral, heart rate 98, respiratory rate 20, oxygen saturation 99% on room air, blood pressure 102/64. General: Ms. Gillette is a well-developed, well-nourished, middle-aged obese, white woman who is sitting at the edge of her bed. She has an MJ collar in place. She appears to be in no acute distress. HEENT: PERRL. EOMI. Visual bundy are grossly intact. Sclerae nonicteric without injection. Hearing is grossly intact. Oral mucous membranes are moist. There are no lesions. Pharynx is clear. The tongue is at midline. Palate elevates symmetrically. MJ collar in place with clean, dry, intact dressings. Drain has been removed. Cardiovascular: Regular rate and rhythm with S1, S2 present. No murmurs, rubs , clicks, or gallops. There is no JVD or peripheral edema. Pulmonary: Symmetrical chest expansion. No use of accessory muscles. Clear to auscultation bilaterally without rhonchi, wheeze, or rales. Abdomen: Flat. Bowel sounds in all quadrants. Abdomen is soft and nontender to palpation. Musculoskeletal: The patient has a steady gait. There are no impairments. She is able to move all of her extremities. Neuro: The patient is awake. She is alert and oriented x3. Cranial nerves II through XII are grossly intact. DISCHARGE PLAN: Ms. Gillette will be discharged to home. CONDITION: Good. DIET: Resume home diet. ACTIVITY: 1. No bending, lifting, driving. 2. Keep surgical incision site dry for 2 days. May shower in 2 days, but keep incision site dry. 3. No bathing. MEDICATIONS: 1. Continue pain medication per prescription as needed. 2. Consider bowel regimen while on continued pain medications. EDUCATION: 1. Follow up with Dr. Alvarado within 1 week. 2. Follow up with primary care provider in 4 to 7 days. 3. Return to the ER or nearest hospital if you experience surgical site erythema, drainage, or pain. Return for high fevers, chills, night sweats. Return for chest pain or discomfort, shortness of breath, dizziness, lightheadedness, loss of consciousness, or any other worrisome signs or symptoms. This is a summarized report of a complex medical history and hospital stay. For further details, please see the entire medical record. TIME SPENT: Approximately 30 minutes were spent on this discharge, greater than half that time spent [id number] with the patient discussing discharge plans and instructions. ALICIA MENDIETA [id number]/[facility] #: [id number] ERICA
--- NOTE | 2019-11-11 00:13 | PN ---
Progress Note - Progress Note Date of Service: 11/10/19 SOAP: Subjective: []Patient was seen early in am. No events ON. Tolerated procedure well yesterday. Tolerates PO well. Ambulates. Voids. Preoperative RtUE pain and numbness resolved. Patient very happy and wants to go home. Objective: []VSS, Afebrile MJ collar. Andrei drain output noted. Drain was removed. Catheter appeared to be intact. No complications. Patient tolerated the procedure well. AAOx3, LIZ, CN II-XII grosly intact Motor 5/5 all extremities Sensory grossly intact to light touch Assessment: [] 43 yof POD#1 ACDF C5-6, C6-7. Plan: []Monitor VS, Neurochecks XR revealed good alignment of spine, good placement of hardware. DC today. DC instructions were given to patient. Follow up in office in 7-10 days. Appreciate IM, Dr Prado's care. Isela Alvarado MD
== END 2019-11-10 12:25 | disposition home or self-care (01) | DRG 321 ==
LOC: AA 06:23 → UNDOADMIN 06:23 → INTOOBSV 06:23 → SSU 14:24 → AA 14:24 → UNDODISIN 11-10 12:25
PROVIDERS: ADMIT Neurological Surgery; ATTEND Neurological Surgery
PROC: 0RB30ZZ Excision of Cervical Vertebral Disc, Open Approach (ICD-10-PCS; 2019-11-09)
PROC: 0RG20A0 Fusion of 2 or more Cervical Vertebral Joints with Interbody Fusion Device, Anterior Approach, Anterior Column, Open Approach (ICD-10-PCS; principal; 2019-11-09 07:30)
DX: M47.22 Other spondylosis with radiculopathy, cervical region (principal); M50.023 Cervical disc disorder at C6-C7 level with myelopathy; M48.02 Spinal stenosis, cervical region; M47.26 Other spondylosis with radiculopathy, lumbar region; M50.123 Cervical disc disorder at C6-C7 level with radiculopathy; G25.81 Restless legs syndrome; J45.909 Unspecified asthma, uncomplicated; M79.7 Fibromyalgia; M25.78 Osteophyte, vertebrae; F17.210 Nicotine dependence, cigarettes, uncomplicated; M51.24 Other intervertebral disc displacement, thoracic region; K59.00 Constipation, unspecified; G89.29 Other chronic pain; M51.26 Other intervertebral disc displacement, lumbar region; Z88.1 Allergy status to other antibiotic agents; Z88.0 Allergy status to penicillin; Z79.899 Other long term (current) drug therapy; Z82.49 Family history of ischemic heart disease and other diseases of the circulatory system; Z83.3 Family history of diabetes mellitus; Z82.61 Family history of arthritis; Z82.3 Family history of stroke; Z84.1 Family history of disorders of kidney and ureter; Z80.41 Family history of malignant neoplasm of ovary; Z80.1 Family history of malignant neoplasm of trachea, bronchus and lung
CPT/HCPCS: 72040; 76000; A9270-GY; C1713; C1776; C9359; J1100; J2001; J2250; J2405; J2704; J3010; J3370